=== PATIENT | female | born 1990 | race Caucasian/White ===

== ENCOUNTER 2019-03-31 22:01 | Inpatient (IN) ==
[2019-03-31] MEDS ORDERED: ZYPREXA IM ONE (22:11)
[2019-03-31] MEDS ORDERED: ATIVAN IM ONE (22:17)
[2019-03-31] MEDS ORDERED: QUELICIN IV ONE (22:38)
[2019-03-31] MEDS ORDERED: AMIDATE IV ONE (22:38)
[2019-03-31 22:46] LABS: BE 1.3 mmoll (-3.0-3.0); BLOOD TYPE ARTERIAL; HCO3-(ACT) 25.8 mmoll (20.0-26.0); O2(CT) 18.2 mL/dL (15.0-23.0); O2HB 92.1 % (95.0-99.0); PCO2(98.6) 36 mmHg (35-45); PO2(98.6) 77 mmHg (60-100); SAMPLE BLOOD; SAO2 98.4 % (95.0-100.0); pH(98.6) 7.45 (7.35-7.45)
[2019-03-31 22:50] LABS: INR 0.89; PROTIME 12.5 Seconds (11.0-16.0)
[2019-03-31 22:51] LABS: PTT 29.5 Seconds (22.3-41.8)
[2019-03-31 23:02] LABS: UR AMPHETAMINES QUAL NONE DETECTED (NONE DETECT); UR BARBITUATES QUAL NONE DETECTED (NONE DETECT); UR BENZODIAZEPIN QUAL NONE DETECTED (NONE DETECT); UR CANNABINOIDS QUAL NONE DETECTED (NONE DETECT); UR COCAINE QUAL NONE DETECTED (NONE DETECT); UR METHADONE QUAL NONE DETECTED (NONE DETECT); UR METHAMPHETAMINE QUAL NONE DETECTED (NONE DETECT); UR OPIATES QUAL NONE DETECTED (NONE DETECT); UR OXYCODONE QUAL NONE DETECTED (NONE DETECT); UR PCP QUAL NONE DETECTED (NONE DETECT); UR PROPOXYPHENE QUAL NONE DETECTED (NONE DETECT); UR TCA QUAL NONE DETECTED (NONE DETECT)
[2019-03-31 23:04] LABS: BASO# 0.04 X1000 (0.0-0.2); BASO% 0.3 % (0.0-0.8); EOS# 0.01 X1000 (0.0-0.7); EOS% 0.1 % (0.0-10.0); HEMATOCRIT 40.5 % (37.0-47.0); HEMOGLOBIN 13.2 g/dL (12.0-16.0); IMM GRAN# 0.04 X1000 (0.0-0.04); IMM GRAN% 0.3 % (0.0-0.5); LYMPH# 3.29 X1000 (1.2-3.4); LYMPH% 27.9 % (20.5-51.1); MCH 26.5 PG (27-31); MCHC 32.6 g/dL (33-37); MCV 81.3 FL (81-99); MONO% 7.6 % (1.7-9.3); MPV 10.3 FL (7.4-10.4); NEUT# 7.51 X1000 (1.4-6.5); NEUT% 63.8 % (42.2-75.2); PLT 372 X1000 (130-400); RBC 4.98 XMIL (4.2-5.4); RDW 13.8 % (11.5-14.5); WBC 11.79 X1000 (4.8-10.8)
[2019-03-31] MEDS ORDERED: NS 1,000 ML IV ONE (23:05)
[2019-03-31] MEDS ORDERED: DIPRIVAN 1% IV ONE (23:10)
[2019-03-31] MEDS: DIPRIVAN 1% 1,000 MG/100 ML BOTTLE IV SCH ×5 (23:10→23:48)
[2019-03-31] MEDS: NS 1,000 ML IV ONE (23:10)
[2019-03-31] MEDS ORDERED: INDERAL IV ONE (23:11)
--- NOTE | 2019-03-31 23:11 | PROVIDER DOCUMENTATION ---
This chart was entered by Lazaro Pelaez Scribe, acting as scribe for Sandy Dubon CRNP. [id number] Abuse/Overdose - General Source: patient, EMS - History of Present Illness-Drug/Alcohol This episode of drinking or use began:: just prior to arrival Psychiatric Complaints: reports: angry, agitated, suicidal ideation Associated Symptoms: reports: denies symptoms - Overdose Intentional drug overdose?: Yes <Sandy Dubon - Last Filed: 03/31/19 23:33> <Job Gordillo - Last Filed: 03/31/19 23:49> - General Stated Complaint: Overdose/ SI Time Seen by Provider: 03/31/19 22:02 - History of Present Illness-Drug/Alcohol Nature of Presenting Problem: 29 yof presents [facility] w/ Overdose/SI. pt states taken 34 Olanzapine and 2 Tylenol's. pt was trying to kill herself because no one listens to her. pt lives w/ fiance and his roommate. pt is screaming ,non-compliant, angry. pt is restrained. (Sandy Dubon) Review of Systems - Adult - REVIEW OF SYSTEMS - ADULT Constitutional: reports: no symptoms reported Eyes: reports: no symptoms reported Ears, Nose, Mouth & Throat: reports: no symptoms reported Cardiovascular: reports: no symptoms reported Respiratory: reports: no symptoms reported Gastrointestinal: reports: no symptoms reported Genitourinary: reports: no symptoms reported Musculoskeletal: reports: no symptoms reported Integumentary: reports: no symptoms reported Neurological: reports: no symptoms reported Psychiatric: reports: no symptoms reported Endocrine: reports: no symptoms reported Hematologic/Lymphatic: reports: no symptoms reported Allergic/Immunologic: reports: no symptoms reported All Other Systems: Reviewed and Negative <Sandy Dubon - Last Filed: 03/31/19 23:33> Past History - Adult - PAST MEDICAL HISTORY-ADULT Review of Records: reports: Old Records Reviewed, Nursing Assessment Review, Medications Reviewed, Social history reviewed & non-contributory. Major Childhood Illnesses: reports: denies history Cardiovascular: reports: denies history Respiratory: reports: denies history Gastrointestinal: reports: denies history Obstetrical/Gynecological: reports: denies history Genitourinary: reports: denies history Musculoskeletal: reports: denies history Neurological: reports: denies history Endocrine/Immune: reports: denies history Other Conditions: reports: denies history - PRIOR SURGERIES/PROCEDURES Surgical/Procedure History: reports: reviewed, not pertinent - IMMUNIZATION STATUS Childhood Immunizations: See Nurse Assessment Flu Vaccine: See Nurse Assessment - FAMILY HISTORY Family History: reviewed, not pertinent <Sandy Dubon - Last Filed: 03/31/19 23:33> Physical Exam-General - PHYSICAL EXAM-ADULT Initial Vital Signs Reviewed: Yes - CONSTITUTIONAL General Appearance: alert, combative <Sandy Dubon - Last Filed: 03/31/19 23:33> Progress - PLAN OF CARE/RESULTS Result Diagrams: 03/31/19 22:30 03/31/19 22:30 - REASSESSMENT Reassessment #1 Time Reassessed: 22:36 (CHANGE IN MS, UNRESPONSIVE, DR PATRICK AT BEDSIDE, WILL INTUBATE) Status: worsening - EKG 1 Time of EKG reading by physician:: 22:26 EKG Read and Signed by:: Job Gordillo EKG Interpretation (*Must complete 3 of following elements*): Abnormal Rate: 163 Rhythm: sinus tachycardia [place] [facility]: normal QRS: normal [place] Interval: normal ST Wave: normal Comments: Nonspecific ST and T wave abnormality - XRAY 1 XRAY Study: Chest Impression: See EMR Report (TUBE IN CORRECT PLACE ABOVE THE DONALD, ELEVATED R HEMIDIAPHRAGM) - CONSULTS/PCP/HOSPITALIST Notification #1 *Consult/PCP/Hospitalist*: DR. CORTEZ Time Discussed: 23:09 Consult Disposition: Admit (TO ICU) <Sandy Dubon - Last Filed: 03/31/19 23:33> - PLAN OF CARE/RESULTS Result Diagrams: 03/31/19 22:30 03/31/19 22:30 <Job Gordillo - Last Filed: 03/31/19 23:49> - PLAN OF CARE/RESULTS Progress/Plan/Lab Results: Vital Signs - 8 hr 03/31/19 22:03 03/31/19 23:10 Pulse Rate 142 H Respiratory Rate 20 O2 Sat by Pulse Oximetry 98 Laboratory Results - last 24 hr 03/31/19 03/31/19 03/31/19 22:30 22:30 22:30 WBC 11.79 H RBC 4.98 Hgb 13.2 Hct 40.5 MCV 81.3 MCH 26.5 L MCHC 32.6 L RDW Std Deviation 13.8 Plt Count 372 MPV 10.3 Immature Gran % (Auto) 0.3 Neut % (Auto) 63.8 Lymph % (Auto) 27.9 [place] % (Auto) 7.6 Eos % (Auto) 0.1 Baso % (Auto) 0.3 Immature Gran # (Auto) 0.04 Neut # (Auto) 7.51 H Lymph # (Auto) 3.29 [place] # (Auto) 0.90 H Eos # (Auto) 0.01 Baso # (Auto) 0.04 PT 12.5 INR 0.89 PTT (Actin FS) 29.5 Specimen Type Sample Site pH pCO2 pO2 HCO3 Base Excess Oxyhemoglobin ABG O2 Sat (Calculated) ABG O2 Saturation ABG Carboxyhemoglobin ABG Methemoglobin Clement Test A-a O2 Difference Total Hemoglobin Lactate Blood Gas Modality FiO2 % Sodium 136 Potassium 4.0 Chloride 102 Carbon Dioxide 21 L Anion Gap 13 BUN 9 Creatinine 0.5 Estimated GFR/1.73 m2 > 60 BUN/Creatinine Ratio 18 Glucose 133 H Calculated Osmolality 273 Calcium 9.5 Total Bilirubin < 0.15 L AST 13 ALT 12 Alkaline Phosphatase 188 H Total Protein 7.2 Albumin 4.4 Globulin 3.0 Albumin/Globulin Ratio 2.0 TSH Free T4 Urine Source Urine Color Urine Turbidity Urine pH Ur Specific [place] Urine Protein Ur Glucose (Stick) Ur Ketones (Stick) Urine Blood Urine Nitrite Urine Bilirubin Urobilinogen Dipstick Urine Leukocytes Urine WBC (Auto) Urine RBC (Auto) U Epithel Cells (Auto) Urine Bacteria (Auto) Salicylates < 3.00 L Urine Opiates Screen Ur Oxycodone Screen Urine Methadone Screen U Propoxyphene Qual Acetaminophen < 1.2 L Ur Barbituates Screen Ur Tricyclics Screen Ur Phencyclidine Scrn Ur Amphetamines Screen U Methamphetamines Scrn U Benzodiazepines Scrn Urine Cocaine Screen U Cannabinoids Screen Plasma/Serum Ethyl Alc 03/31/19 03/31/19 03/31/19 22:30 22:30 22:37 WBC RBC Hgb Hct MCV MCH MCHC RDW Std Deviation Plt Count MPV Immature Gran % (Auto) Neut % (Auto) Lymph % (Auto) [place] % (Auto) Eos % (Auto) Baso % (Auto) Immature Gran # (Auto) Neut # (Auto) Lymph # (Auto) [place] # (Auto) Eos # (Auto) Baso # (Auto) PT INR PTT (Actin FS) Specimen Type Sample Site pH pCO2 pO2 HCO3 Base Excess Oxyhemoglobin ABG O2 Sat (Calculated) ABG O2 Saturation ABG Carboxyhemoglobin ABG Methemoglobin Clement Test A-a O2 Difference Total Hemoglobin Lactate Blood Gas Modality FiO2 % Sodium Potassium Chloride Carbon Dioxide Anion Gap BUN Creatinine Estimated GFR/1.73 m2 BUN/Creatinine Ratio Glucose Calculated Osmolality Calcium Total Bilirubin AST ALT Alkaline Phosphatase Total Protein Albumin Globulin Albumin/Globulin Ratio TSH 6.52 H Free T4 1.14 Urine Source Cancelled Urine Color Cancelled Urine Turbidity Cancelled Urine pH Cancelled Ur Specific [place] Cancelled Urine Protein Cancelled Ur Glucose (Stick) Cancelled Ur Ketones (Stick) Cancelled Urine Blood Cancelled Urine Nitrite Cancelled Urine Bilirubin Cancelled Urobilinogen Dipstick Cancelled Urine Leukocytes Cancelled Urine WBC (Auto) Cancelled Urine RBC (Auto) Cancelled U Epithel Cells (Auto) Cancelled Urine Bacteria (Auto) Cancelled Salicylates Urine Opiates Screen Ur Oxycodone Screen Urine Methadone Screen U Propoxyphene Qual Acetaminophen Ur Barbituates Screen Ur Tricyclics Screen Ur Phencyclidine Scrn Ur Amphetamines Screen U Methamphetamines Scrn U Benzodiazepines Scrn Urine Cocaine Screen U Cannabinoids Screen Plasma/Serum Ethyl Alc 03/31/19 03/31/19 03/31/19 22:37 22:37 22:40 WBC RBC Hgb Hct MCV MCH MCHC RDW Std Deviation Plt Count MPV Immature Gran % (Auto) Neut % (Auto) Lymph % (Auto) [place] % (Auto) Eos % (Auto) Baso % (Auto) Immature Gran # (Auto) Neut # (Auto) Lymph # (Auto) [place] # (Auto) Eos # (Auto) Baso # (Auto) PT INR PTT (Actin FS) Specimen Type ARTERIAL Sample Site L BRACHIAL pH 7.45 pCO2 36 pO2 77 HCO3 25.8 Base Excess 1.3 Oxyhemoglobin 92.1 L ABG O2 Sat (Calculated) 18.2 ABG O2 Saturation 98.4 ABG Carboxyhemoglobin 5.40 H* ABG Methemoglobin 1.0 Clement Test NO A-a O2 Difference 28.0 Total Hemoglobin 14.0 Lactate 1.90 Blood Gas Modality ROOM AIR FiO2 % 21.0 Sodium Potassium Chloride Carbon Dioxide Anion Gap BUN Creatinine Estimated GFR/1.73 m2 BUN/Creatinine Ratio Glucose Calculated Osmolality Calcium Total Bilirubin AST ALT Alkaline Phosphatase Total Protein Albumin Globulin Albumin/Globulin Ratio TSH Free T4 Urine Source CATH Urine Color YELLOW Urine Turbidity CLEAR Urine pH 5.5 Ur Specific [place] 1.025 Urine Protein TRACE A Ur Glucose (Stick) NEGATIVE Ur Ketones (Stick) NEGATIVE Urine Blood NEGATIVE Urine Nitrite NEGATIVE Urine Bilirubin NEGATIVE Urobilinogen Dipstick 2 A Urine Leukocytes TRACE A Urine WBC (Auto) <10 Urine RBC (Auto) <10 U Epithel Cells (Auto) <10 Urine Bacteria (Auto) NEGATIVE Salicylates Urine Opiates Screen NONE DETECTED Ur Oxycodone Screen NONE DETECTED Urine Methadone Screen NONE DETECTED U Propoxyphene Qual NONE DETECTED Acetaminophen Ur Barbituates Screen NONE DETECTED Ur Tricyclics Screen NONE DETECTED Ur Phencyclidine Scrn NONE DETECTED Ur Amphetamines Screen NONE DETECTED U Methamphetamines Scrn NONE DETECTED U Benzodiazepines Scrn NONE DETECTED Urine Cocaine Screen NONE DETECTED U Cannabinoids Screen NONE DETECTED Plasma/Serum Ethyl Alc Orders Category Date Time Status [facility] Routine AdmDCTranf 03/31/19 23:43 Active V[place] Cath Insertion ORDERED Care 03/31/19 22:29 Active Misc. NRSG Communication Order DIRECTED Care 03/31/19 22:11 Active NG/OG/Feeding Tube Insertion ORDERED Care 03/31/19 22:53 Active Restraint Initiate NonViolent ONCE Care 03/31/19 22:09 Active CHEST-1 VIEW [RAD] Stat Exams 03/31/19 23:[address] HEAD W/O CONTRAST [CT] Stat Exams 03/31/19 23:13 Ordered ABG [RESP] Routine Lab 03/31/19 22:40 Completed ACETAMINOPHEN [TDM] Stat Lab 03/31/19 22:30 Completed ALCOHOL BLOOD Stat Lab 03/31/19 22:30 Completed CBC WITH ELECTRONIC DIFF [HEME] Stat Lab 03/31/19 22:30 Completed COMPREHENSIVE METABOLIC PANEL [CHEM] Stat Lab 03/31/19 22:30 Completed FREE T4 Stat Lab 03/31/19 22:30 Completed PROTIME WITH INR [COAG] Stat Lab 03/31/19 22:30 Completed PTT [COAG] Stat Lab 03/31/19 22:30 Completed SALICYLATES [TDM] Stat Lab 03/31/19 22:30 Completed TSH Stat Lab 03/31/19 22:30 Completed UA NIMS W/REFLEX CULT [URINALYSIS] Stat Lab 03/31/19 22:37 Completed URINE CULTURE [RM] Routine Lab 03/31/19 23:23 Ordered URINE DRUG SCREEN [address] Stat Lab 03/31/19 22:37 Completed 0.9% Sodium Chloride Inj [Ns] 1,000 ml Med 03/31/19 22:52 Active IV 75 mls/hr Etomidate [Amidate] Med 03/31/19 22:38 Discontinued 20 mg IV NOW ONE Lorazepam [Ativan] Med 03/31/19 22:17 Discontinued 2 mg IM NOW ONE Olanzapine [Zyprexa] Med 03/31/19 22:11 Discontinued 10 mg IM NOW ONE Propofol [Diprivan 1%] Med 03/31/19 23:00 Active 1,000 mg in 100 ml IV As Directed mls/hr Propranolol [Inderal] Med 03/31/19 23:11 Discontinued 10 mg IV NOW ONE Succinylcholine [Quelicin] Med 03/31/19 22:38 Discontinued 100 mg IV NOW ONE Ventilator Order Stat Oth 03/31/19 23:23 Active EKG [EKG] Stat Ther 03/31/19 22:10 Ordered Transfer/Admit Order [TRANSFER] Routine Transfer 03/31/19 23:44 Ordered 2306: WHEN RN ATTEMPTED TO PLACE OG TUBE, BLOOD WAS NOTED. DR GORDILLO AT BEDSIDE. ORDER TO DC OG FROM HIM. (Sandy Dubon) Procedures - INTUBATION Time of Intubation: 23:00 Airway Evaluation: Obese Mallampati Class: 3 Intubation Method: orotracheal Equipment: ETT, Glidescope Tube Size (cm): 7.5 Pretreated with 100% Oxygen?: Yes Breath Sounds after Intubation: equal ETT Primary Tube Confirmation: Capnometry CO2 Change, Direct Visualization, Chest Rise and Fall Intubation Complications: no complications Procedure Comment: BY DR KNIGHT WITH DR GORDILLO AT BEDSIDE <Sandy Dubon - Last Filed: 03/31/19 23:33> Departure - Departure Date of Disposition Decision: 03/31/19 Time of Disposition Decision: 23:10 Certified Medical Emergency: Emergent - Critical Care Note This patient required my direct & personal management of CC.: Yes Total Time (mins): 47 Critical Care Statement: This patient required my direct personal management to treat or rule out processes, the absence of which, could potentiallly result in sudden, clinically significant life or limb threatening deterioration. <Sandy Dubon - Last Filed: 03/31/19 23:33> - Departure Certified Medical Emergency: Emergent <Job Gordillo - Last Filed: 03/31/19 23:49> - Departure DIAGNOSIS: Intentional olanzapine overdose, Suicide attempt Disposition: ADMITTED INPATIENT 09 Condition: Fair Attestation - Physician/ GERSON Attestation Patient care was provided by Advanced Practice Provider:: Yes Advanced Practice Provider documentation review:: The Mid-level provider documentation, treatment plan and medical decision making was reviewed by the physician who agrees with all treatment and medical decision making by the P. The physician spent face to face time with patient:: Yes (DR GORDILLO, INTUBATED BY DR KNIGHT) Advanced Practice Provider documentation review:: Supervising physician onsite and consulted in the evaluation and care of this patient. The physician did have a face to face encounter with the patient. <Sandy Dubon - Last Filed: 03/31/19 23:33> This chart was documented by the indicated scribe, (Lzaaro Pelaez Scribe) and accurately reflects the services I performed and decisions made by me, Sandy Dubon CRNP, as attested by the provider's signature.
[2019-03-31 23:12] LABS: URINE SOURCE CATH
[2019-03-31 23:14] LABS: ACETAMINOPHEN < 1.2 ug/mL (10-30); AGAP 13; ALBUMIN 4.4 g/dL (3.5-5.0); ALKALINE PHOSPHATASE 188 U/L (32-104); BUN 9 mg/dL (8-22); CALCIUM 9.5 mg/dL (8.8-10.2); CHLORIDE 102 mmol/L (98-107); COSMO 273; CREATININE 0.5 mg/dL (0.5-0.9); ESTIMATED GFR > 60; GLUCOSE 133 mg/dL (70-104); GOT 13 U/L (10-30); GPT 12 U/L (10-36); SALICYLATES < 3.00 mg/dL (3-10); SODIUM 136 mmol/L (136-145); TCO2 21 mmol/L (25-35); TOTAL BILIRUBIN < 0.15 mg/dL (0.20-1.00); TOTAL PROTEIN 7.2 g/dL (6.3-8.3)
[2019-03-31 23:15] LABS: BILIRUBIN URINE NEGATIVE (NEGATIVE); BLOOD URINE NEGATIVE (NEGATIVE); COLOR YELLOW; GLUCOSE URINE NEGATIVE (NEGATIVE); KETONE URINE NEGATIVE (NEGATIVE); LEUKOCYTES URINE TRACE (NEGATIVE); NITRITE URINE NEGATIVE (NEGATIVE); PH URINE 5.5; PROTEIN URINE TRACE mg/dL (NEGATIVE); SP GRAVITY URINE 1.025; TURBIDITY URINE CLEAR (CLEAR); UR EPITHELIAL CELLS <10 /HPF (<10); URINE BACTERIA NEGATIVE /HPF; URINE RBC <10 /HPF (<10); URINE WBC <10 /HPF (<10); UROBILINOGEN URINE 2 mg/dL (NORMAL)
[2019-03-31 23:23] LABS: FREE T4 1.14 ng/dL (0.93-1.70)
[2019-03-31 23:27] LABS: ALLEN TEST NO; MODALITY ROOM AIR
[2019-03-31 23:28] LABS: TSH 6.52 uIUmL (0.27-4.20)
[2019-03-31] MEDS ORDERED: VERSED ONE (23:49)
[2019-03-31] MEDS ORDERED: NS 1,000 ML ONE (23:55)
[2019-04-01] MEDS: NS 1,000 ML IV ONE (00:04)
[2019-04-01] MEDS: DIPRIVAN 1% 1,000 MG/100 ML BOTTLE IV SCH ×10 (00:36→23:17)
[2019-04-01] MEDS ORDERED: VERSED IV ONE (00:38)
--- NOTE | 2019-04-01 03:56 | HISTORY AND PHYSICAL ---
CHIEF COMPLAINT: Drug overdose. PRIMARY CARE PHYSICIAN: Unknown. HISTORY OF PRESENTING ILLNESS: A 29-year-old female who was brought initially to [facility] after possible overdose on Zyprexa. Apparently, family had stated that she took about 30 pills of Zyprexa and she tried to kill herself. She was initially agitated and then she became unresponsive; subsequently, she was emergently intubated there. Due to lack of ICU beds, she was transferred to [facility] for further evaluation and management. At the time of my examination, no family is around and most of the history is obtained from previous ER charting and records. PAST MEDICAL HISTORY: Unknown. PAST SURGICAL HISTORY: Unknown. ALLERGIES: Unknown. CURRENT MEDICATIONS: Unknown. SOCIAL HISTORY: Unknown. FAMILY HISTORY: Unknown. REVIEW OF SYSTEMS: Unable to obtain due to patient being intubated. PHYSICAL EXAMINATION: GENERAL: The patient is currently intubated and on a ventilator. VITAL SIGNS: Temperature 97.9 degrees, pulse 117, blood pressure 155/109. HEENT: Atraumatic, normocephalic. NECK: No masses. CHEST: Clear to auscultation. CARDIOVASCULAR: Regular rate and rhythm. ABDOMEN: Soft, positive bowel sounds. EXTREMITIES: No edema. NEUROLOGIC: Patient is sedated on propofol. GENITOURINARY: No bladder distention. SKIN: Warm. LABORATORIES AND STUDIES: WBCs 11.79, hemoglobin 13.2, hematocrit 40.5, platelets 372,000. Sodium 136, potassium 4.0, chloride 102, CO2 is 21, BUN is 9, creatinine 0.5. Glucose is 133. UA is nitrite negative. Toxicology is negative for salicylate and acetaminophen. ASSESSMENT: A 29-year-old female who intentionally took about 30 pills of Zyprexa. She was initially seen at [facility], where she became unresponsive. She was rapidly intubated. Her case was discussed with Poison Control, who recommended supportive care. Due to lack of ICU beds available at [place], she was transferred to [facility] for further evaluation and management. 1. Intentional drug overdose with Zyprexa. 2. Suicide attempt. PLAN: 1. We will admit patient to ICU. 2. We will continue with ventilator management and supportive care. 3. We will consult Psychiatry. 4. We will put patient on DVT prophylaxis, SCDs. 5. We will continue to follow and reassess. Make further recommendation based on patient's clinical course. cc: Reddy Thomson MD
--- NOTE | 2019-04-01 05:13 | EKG Report ---
Test Performed on : 03/31/2019 10:26:56 PM Test Reason : SI Blood Pressure : / mmHG Vent. Rate : 163 BPM Atrial Rate : 166 BPM P-R Int : 112 ms QRS Dur : 076 ms QT Int : 298 ms P-R-T Axes : 000 030 045 degrees QTc Int : 490 ms Sinus tachycardia. Nonspecific ST and T wave abnormality Abnormal ECG No previous ECGs available Unconfirmed Result
--- NOTE | 2019-04-01 05:26 | Diag Imaging Result Doc PS360 ---
EXAM: CHEST-1 VIEW HISTORY: og tube placement TECHNIQUE: Single view COMPARISON: 03/31/2019 FINDINGS: Chest abdomen single view. A nasogastric tube overlies the esophagus and stomach. This appears to be in good position. The stomach is no longer distended as it previously was. IMPRESSION: Nasogastric tube in good position. Electronically signed by Slade Dye 04/01/2019 5:23 AM
--- NOTE | 2019-04-01 05:31 | Diag Imaging Result Doc PS360 ---
EXAM: CHEST-1 VIEW HISTORY: tube placement TECHNIQUE: Single view COMPARISON: None. FINDINGS: There is an endotracheal tube in good position 2 cm above the tyrell. Poor inspiratory effort. No cardiomegaly. No pulmonary edema. No pleural effusions identified. There are infiltrates or atelectasis in the lower right lung. IMPRESSION: Endotracheal tube in good position. Electronically signed by Slade Dye 04/01/2019 5:29 AM
--- NOTE | 2019-04-01 05:34 | Diag Imaging Result Doc PS360 ---
EXAM: CT HEAD W/O CONTRAST HISTORY: OD TECHNIQUE: CT head without contrast COMPARISON: None. FINDINGS: No parenchymal hemorrhage. No epidural or subdural hematoma. No subarachnoid hemorrhage. No mass identified on this noncontrasted exam. No hydrocephalus. No sinus opacification. IMPRESSION: No hemorrhage. Negative brain CT without contrast. A preliminary report was given at 12:59 AM This exam was performed using automated exposure control, adjustment of mA or kV according to patient size, and/or use of iterative reconstruction technique. Electronically signed by Slade Dye 04/01/2019 5:32 AM
--- NOTE | 2019-04-01 07:05 | EKG Report ---
Test Performed on : 04/01/2019 06:38:11 AM Test Reason : OVERDOSE Blood Pressure : / mmHG Vent. Rate : 095 BPM Atrial Rate : 095 BPM P-R Int : 166 ms QRS Dur : 084 ms QT Int : 366 ms P-R-T Axes : 057 030 024 degrees QTc Int : 459 ms Sinus rhythm. with occasional premature ventricular complexes. Otherwise normal ECG When compared with ECG of 31-MAR-2019 22:26, (Unconfirmed) premature ventricular complexes. are now present Vent. rate has decreased BY [address] no longer depressed in Anterolateral leads Confirmed by Osito LANTIGUA, Alec Song ([id number]) on 04/06/2019 9:24:27 AM
[2019-04-01 08:53] LABS: BASO# 0.06 X1000 (0.0-0.2); BASO% 0.5 % (0.0-0.8); EOS# 0.04 X1000 (0.0-0.7); EOS% 0.3 % (0.0-10.0); HEMATOCRIT 39.1 % (37.0-47.0); HEMOGLOBIN 12.4 g/dL (12.0-16.0); IMM GRAN# 0.03 X1000 (0.0-0.04); IMM GRAN% 0.2 % (0.0-0.5); LYMPH# 2.74 X1000 (1.2-3.4); LYMPH% 21.2 % (20.5-51.1); MCH 26.8 PG (27-31); MCHC 31.7 g/dL (33-37); MCV 84.6 FL (81-99); MONO# 1.66 X1000 (0.11-0.59); MONO% 12.8 % (1.7-9.3); MPV 10.2 FL (7.4-10.4); NEUT# 8.39 X1000 (1.4-6.5); PLT 326 X1000 (130-400); RBC 4.62 XMIL (4.2-5.4); RDW 14.1 % (11.5-14.5); WBC 12.92 X1000 (4.8-10.8)
[2019-04-01 09:17] LABS: AGAP 16; BUN 6 mg/dL (8-22); CALCIUM 8.8 mg/dL (8.8-10.2); CHLORIDE 105 mmol/L (98-107); COSMO 279; CREATININE 0.6 mg/dL (0.5-0.9); ESTIMATED GFR > 60; GLUCOSE 99 mg/dL (70-104); SODIUM 141 mmol/L (136-145); TCO2 20 mmol/L (25-35)
[2019-04-01 10:20] LABS: ALLEN TEST YES; BE 1.4 mmoll (-3.0-3.0); BLOOD TYPE ARTERIAL; METHB 1.1 % (0.0-1.5); MODALITY VENTILATOR; O2(CT) 17.8 mL/dL (15.0-23.0); O2HB 97.3 % (95.0-99.0); PCO2(98.6) 35 mmHg (35-45); PO2(98.6) 147 mmHg (60-100); SAMPLE BLOOD; SAO2 99.5 % (95.0-100.0); SRATE 15 BPM; THB 12.8 g/dL (11.5-17.4); TVOL 500 mL; pH(98.6) 7.46 (7.35-7.45)
--- NOTE | 2019-04-01 13:25 | CONSULTATION ---
DATE OF CONSULTATION: 04/01/2019 REQUESTING PROVIDER: Dr. Reddy Thomson. REASON FOR CONSULTATION: Ventilator management. HISTORY OF PRESENT ILLNESS: This is a 29-year-old female with no medical history. She initially presented to [place] with possible Zyprexa overdose. Upon arrival to the ER, she was agitated and then became unresponsive. She was intubated emergently in the ER at 2310 last night. Initial chest x-ray showed poor inspiratory effort with infiltrates or atelectasis in the lower right lung. Initial blood work showed mild leukocytosis, critically high ABG carboxyhemoglobin, and elevated TSH. Drug screen was unremarkable. The patient was transferred to ICU in our facility this morning at 0210 due to the lack of ICU bed availability in the [place]. The patient currently is still intubated and sedated with Diprivan drip. There is no family at the bedside. All other information is obtained from the E-chart. PAST MEDICAL HISTORY: Unknown. PAST SURGICAL HISTORY: Unknown. ALLERGIES: Unknown. SOCIAL HISTORY: Unknown. FAMILY HISTORY: Unknown. REVIEW OF SYSTEMS: Unable to be obtained. PHYSICAL EXAMINATION: Vital Signs: Temperature 97.9, blood pressure 128/94, pulse 90, respiratory rate 15, oxygen saturation 100% on AC mechanical ventilator with spontaneous rate 16, FiO2 of 100%, tidal volume 500, and PEEP 5. General: Appears older than stated age, intubated and sedated. No acute distress noted. HEENT: Atraumatic, normocephalic. Trachea midline. ET tube in place. Mucosa pink and slightly dry. Respiratory: Mechanically ventilated. Symmetrical excursion. Auscultation revealed rhonchi on the right upper lobe, otherwise clear. Cardiovascular: Regular rate and rhythm. Gastrointestinal: Obese, soft. Normoactive bowel sounds in all 4 quadrants. Extremities: No pedal edema. No cyanosis. No clubbing. Dorsalis pedis 2+ bilaterally. Neurologic: Sedated. Withdraws bilateral lower extremities on touch, but unresponsive to any verbal stimuli. LABORATORY DATA: White blood cells 12.92, hemoglobin 12.4, hematocrit 39.1, platelets 326,000. Sodium 141, potassium 4.0, chloride 105, carbon dioxide 20, BUN 6, creatinine 0.6, glucose 99. ABG: PH 7.46, pCO2 of 35, PO2 of 147, HC03 of 26, base excess 1.4, oxyhemoglobin 97.3. IMAGING DATA: No imaging today. ASSESSMENT: This is a 29-year-old, female with an unknown medical history. She has been admitted to the intensive care unit with intentional drug overdose with Zyprexa in a suicide attempt. 1. Acute hypoxic respiratory failure secondary to unresponsiveness. 2. Intentional drug overdose with Zyprexa. 3. Suicide attempt. PLAN: 1. Continue AC mechanical ventilator. Will start weaning trials when appropriate. 2. Breathing treatment as needed. 3. Follow up with ABG, CBC, BMP, urine culture, test, and chest x-ray. 4. Continue GI and DVT prophylaxis. 5. Further recommendations pending hospital course. Thank you for the courtesy of this consult. Dictated by CHARLES Fair for Justus Starr MD cc: CHARLES Fair MD Lloyd James, MD MTDD
[2019-04-02] MEDS: DIPRIVAN 1% 1,000 MG/100 ML BOTTLE IV SCH ×5 (01:44→12:27)
[2019-04-02 04:54] LABS: ALLEN TEST YES; BE 2.1 mmoll (-3.0-3.0); BLOOD TYPE ARTERIAL; HCO3-(ACT) 26.6 mmoll (20.0-26.0); O2(CT) 17.9 mL/dL (15.0-23.0); O2HB 97.2 % (95.0-99.0); PCO2(98.6) 34 mmHg (35-45); PO2(98.6) 147 mmHg (60-100); SAMPLE BLOOD; SAO2 99.5 % (95.0-100.0); SRATE 15 BPM; THB 12.9 g/dL (11.5-17.4); TVOL 500 mL; pH(98.6) 7.48 (7.35-7.45)
[2019-04-02 04:55] LABS: MODALITY VENTILATOR
--- NOTE | 2019-04-02 05:58 | EKG Report ---
Test Performed on : 04/01/2019 2:18:19 PM Test Reason : OD Blood Pressure : / mmHG Vent. Rate : 093 BPM Atrial Rate : 093 BPM P-R Int : 156 ms QRS Dur : 084 ms QT Int : 376 ms P-R-T Axes : 060 037 008 degrees QTc Int : 467 ms Sinus rhythm. with occasional premature ventricular complexes. Otherwise normal ECG When compared with ECG of 01-APR-2019 06:38, (Unconfirmed) No significant change was found Confirmed by Osito LANTIGUA, Alec Song ([id number]) on 04/06/2019 9:24:48 AM
[2019-04-02 06:39] LABS: BASO# 0.03 X1000 (0.0-0.2); BASO% 0.3 % (0.0-0.8); EOS# 0.02 X1000 (0.0-0.7); EOS% 0.2 % (0.0-10.0); HEMATOCRIT 39.8 % (37.0-47.0); HEMOGLOBIN 12.6 g/dL (12.0-16.0); LYMPH# 1.78 X1000 (1.2-3.4); LYMPH% 19.4 % (20.5-51.1); MCH 26.2 PG (27-31); MCHC 31.7 g/dL (33-37); MCV 82.7 FL (81-99); MONO# 0.92 X1000 (0.11-0.59); MPV 10.4 FL (7.4-10.4); NEUT# 6.43 X1000 (1.4-6.5); NEUT% 70.1 % (42.2-75.2); PLT 307 X1000 (130-400); RBC 4.81 XMIL (4.2-5.4); RDW 14.5 % (11.5-14.5); WBC 9.18 X1000 (4.8-10.8)
[2019-04-02 07:02] LABS: AGAP 15; BUN 5 mg/dL (8-22); CALCIUM 8.8 mg/dL (8.8-10.2); CHLORIDE 103 mmol/L (98-107); COSMO 279; CREATININE 0.6 mg/dL (0.5-0.9); ESTIMATED GFR > 60; GLUCOSE 99 mg/dL (70-104); POTASSIUM 3.7 mmol/L (3.5-5.1); SODIUM 141 mmol/L (136-145); TCO2 23 mmol/L (25-35)
--- NOTE | 2019-04-02 07:03 | Diag Imaging Result Doc PS360 ---
EXAM: CHEST-1 VIEW 04/02/2019 HISTORY: SOB TECHNIQUE: AP portable at 0506 COMMENT: There is an endotracheal tube with its tip at the thoracic inlet and an NG tube which passes below the diaphragm into the stomach. The inspiration is slightly better than on 03/31/2019. There may still be some degree of bibasilar atelectasis. IMPRESSION: Bibasilar atelectasis. Electronically signed by Asher Mitchell 04/02/2019 7:01 AM
--- NOTE | 2019-04-02 07:08 | EKG Report ---
Test Performed on : 04/02/2019 06:51:46 AM Test Reason : OVERDOSE Blood Pressure : / mmHG Vent. Rate : 097 BPM Atrial Rate : 097 BPM P-R Int : 152 ms QRS Dur : 086 ms QT Int : 378 ms P-R-T Axes : 066 047 022 degrees QTc Int : 480 ms Sinus rhythm. with occasional premature ventricular complexes. Prolonged QT Abnormal ECG When compared with ECG of 01-APR-2019 14:18, (Unconfirmed) No significant change was found Confirmed by Osito LANTIGUA, Alec Song ([id number]) on 04/06/2019 9:25:01 AM
[2019-04-02] MEDS: DUONEB (A & A) INH PRN ×3 (07:56→15:55)
[2019-04-02] MEDS ORDERED: SODIUM CHLORIDE 0.9% INJ SCH (09:30)
--- NOTE | 2019-04-02 09:44 | PROGRESS NOTE ---
DATE: 04/02/2019 SUBJECTIVE: The patient is currently intubated as well as sedated. OBJECTIVE: Vital Signs: Temperature is 98.6 degrees, pulse 93, respirations 15, blood pressure 119/76, oxygen saturation is 99%. HEENT: She has atraumatic, normocephalic. She is anicteric. Pupils are equal, poorly reactive to light. She does have an NG tube as well as ET tube in place. Neck: No lymphadenopathy or thyromegaly. Cardiovascular: S1, S2. Respiratory: Has evidence of good air entry bilaterally. Abdomen: Soft, nontender. No masses felt. Extremities: No evidence of edema. Central Nervous System: No obvious focal deficits noted. IMAGING AND LABORATORY DATA: WBC is 9.18, hematocrit is 39.8, with a platelet count of 237,000. Sodium is 141, potassium 3.7, chloride is 103, bicarb 23, BUN is 5, creatinine 0.6. ABG 7.48/34/147/99.5%. X-ray of the chest shows bibasilar atelectasis. EKG shows normal sinus rhythm with occasional PVCs, prolonged QT. ASSESSMENT AND PLAN: 1. Acute respiratory failure. Recommend cutting down on sedation, and plan for weaning and extubation as soon as possible. Pulmonary team is following. 2. Intentional drug overdose with Zyprexa/suicide attempt/major depression. Will consult with Psychiatric team when the patient is medically stable. 3. Deep venous thrombosis prophylaxis. Sequential compression devices. 4. Gastrointestinal prophylaxis. Proton pump inhibitor. cc: MD Reddy Villar MD
[2019-04-02] MEDS: NS 1,000 ML IV SCH ×2 (09:45→21:53)
[2019-04-02] MEDS: PROTONIX IV SCH (09:45)
[2019-04-02 10:28] LABS: MAGNESIUM 2.1 mg/dL (1.5-2.7); PHOSPHORUS 3.1 mg/dL (2.7-4.5)
[2019-04-02 14:38] LABS: ALLEN TEST NO; BE 0.9 mmoll (-3.0-3.0); BLOOD TYPE ARTERIAL; HCO3-(ACT) 25.6 mmoll (20.0-26.0); METHB 0.7 % (0.0-1.5); O2(CT) 17.3 mL/dL (15.0-23.0); O2HB 95.1 % (95.0-99.0); PCO2(98.6) 32 mmHg (35-45); PO2(98.6) 69 mmHg (60-100); SAMPLE BLOOD; THB 12.9 g/dL (11.5-17.4); pH(98.6) 7.48 (7.35-7.45)
[2019-04-02 14:39] LABS: MODALITY VENTILATOR
[2019-04-02] MEDS ORDERED: OFIRMEV 1000 MG/ISOTONIC SOLN 1,000 MG/100 ML BOTTLE IV PRN (17:06)
--- NOTE | 2019-04-02 17:32 | Diag Imaging Result Doc PS360 ---
EXAM: CHEST-PORTABLE INDICATION: fever TECHNIQUE: One view COMPARISON: 04/02/2019 FINDINGS: There has been interval extubation and removal of the NG tube. There is slight increased opacity in the mid to lower lung zone on the left which could represent a developing consolidation in the lingula. The right lung is clear. The cardiomediastinal silhouette and central vasculature are grossly unremarkable. IMPRESSION: Vague opacity in the left mid to lower lung zone suggesting possible developing consolidation. Follow-up radiograph is recommended. Electronically signed by Sanjiv Shah 04/02/2019 5:30 PM
[2019-04-03 04:43] LABS: ALLEN TEST YES; BE 0.8 mmoll (-3.0-3.0); BLOOD TYPE ARTERIAL; HCO3-(ACT) 25.6 mmoll (20.0-26.0); METHB 0.5 % (0.0-1.5); O2(CT) 16.3 mL/dL (15.0-23.0); O2HB 97.8 % (95.0-99.0); PCO2(98.6) 39 mmHg (35-45); PO2(98.6) 116 mmHg (60-100); SAMPLE BLOOD; SAO2 100.4 % (95.0-100.0); THB 11.7 g/dL (11.5-17.4); pH(98.6) 7.42 (7.35-7.45)
[2019-04-03 04:44] LABS: MODALITY ROOM AIR
--- NOTE | 2019-04-03 05:30 | EKG Report ---
Test Performed on : 04/03/2019 01:45:06 AM Test Reason : OVERDOSE Blood Pressure : / mmHG Vent. Rate : 092 BPM Atrial Rate : 092 BPM P-R Int : 168 ms QRS Dur : 086 ms QT Int : 368 ms P-R-T Axes : 052 032 017 degrees QTc Int : 455 ms Normal sinus rhythm. Normal ECG When compared with ECG of 02-APR-2019 20:25, (Unconfirmed) premature ventricular complexes. are no longer present QRS axis shifted left Confirmed by Osito LANTIGUA, Alec Song ([id number]) on 04/06/2019 9:26:06 AM
--- NOTE | 2019-04-03 05:31 | EKG Report ---
Test Performed on : 04/02/2019 8:25:31 PM Test Reason : OVERDOSE Blood Pressure : / mmHG Vent. Rate : 098 BPM Atrial Rate : 098 BPM P-R Int : 152 ms QRS Dur : 094 ms QT Int : 376 ms P-R-T Axes : 117 148 155 degrees QTc Int : 480 ms Suspect arm lead reversal, interpretation assumes no reversal Sinus rhythm. with occasional premature ventricular complexes. Right axis deviation Prolonged QT Abnormal ECG When compared with ECG of 02-APR-2019 06:51, (Unconfirmed) QRS axis shifted right Confirmed by Osito LANTIGUA, Alec Song ([id number]) on 04/06/2019 9:26:04 AM
[2019-04-03 06:07] LABS: BASO# 0.04 X1000 (0.0-0.2); BASO% 0.5 % (0.0-0.8); EOS# 0.07 X1000 (0.0-0.7); EOS% 0.8 % (0.0-10.0); HEMATOCRIT 35.3 % (37.0-47.0); HEMOGLOBIN 11.4 g/dL (12.0-16.0); LYMPH# 1.92 X1000 (1.2-3.4); LYMPH% 22.9 % (20.5-51.1); MCH 26.9 PG (27-31); MCHC 32.3 g/dL (33-37); MCV 83.3 FL (81-99); MONO% 7.2 % (1.7-9.3); MPV 10.4 FL (7.4-10.4); NEUT# 5.75 X1000 (1.4-6.5); NEUT% 68.6 % (42.2-75.2); PLT 325 X1000 (130-400); RBC 4.24 XMIL (4.2-5.4); RDW 14.4 % (11.5-14.5); WBC 8.38 X1000 (4.8-10.8)
[2019-04-03 06:08] LABS: AGAP 13; ALB/GLOB RATIO 1.1; ALBUMIN 3.1 g/dL (3.5-5.0); ALKALINE PHOSPHATASE 160 U/L (32-104); BUN 6 mg/dL (8-22); CALCIUM 8.6 mg/dL (8.8-10.2); CHLORIDE 106 mmol/L (98-107); COSMO 280; CREATININE 0.5 mg/dL (0.5-0.9); ESTIMATED GFR > 60; GLUCOSE 88 mg/dL (70-104); GOT 8 U/L (10-30); GPT 9 U/L (10-36); POTASSIUM 3.7 mmol/L (3.5-5.1); SODIUM 142 mmol/L (136-145); TCO2 23 mmol/L (25-35); TOTAL BILIRUBIN 0.49 mg/dL (0.20-1.00); TOTAL PROTEIN 5.8 g/dL (6.3-8.3)
--- NOTE | 2019-04-03 07:23 | EKG Report ---
Test Performed on : 04/03/2019 06:33:38 AM Test Reason : OVERDOSE Blood Pressure : / mmHG Vent. Rate : 089 BPM Atrial Rate : 089 BPM P-R Int : 168 ms QRS Dur : 088 ms QT Int : 378 ms P-R-T Axes : 055 043 030 degrees QTc Int : 459 ms Sinus rhythm. with occasional premature ventricular complexes. Otherwise normal ECG When compared with ECG of 03-APR-2019 01:45, (Unconfirmed) premature ventricular complexes. are now present Confirmed by Osito LANTIGUA, Alec Song ([id number]) on 04/06/2019 9:26:48 AM
--- NOTE | 2019-04-03 07:42 | Diag Imaging Result Doc PS360 ---
EXAM: CHEST-1 VIEW INDICATION: SOB TECHNIQUE: One view COMPARISON: 04/02/2019 FINDINGS: The opacity at the left mid to lower lung zone seen on the previous study is approximately stable. No new consolidation is identified. Cardiac silhouette is stable. IMPRESSION: Stable chest. Electronically signed by Sanjiv Shah 04/03/2019 7:40 AM
[2019-04-03] MEDS: PROTONIX IV SCH (08:43)
[2019-04-03] MEDS ORDERED: LOVENOX SUBQ SCH (09:00)
--- NOTE | 2019-04-03 10:12 | PROVIDER PROGRESS NOTE ---
Progress Note Pulmonary Note: The patient was extubated and tolerated that. Will see PRN. Please re-consult if needed.
[2019-04-03] MEDS: NS 1,000 ML IV SCH (14:06)
[2019-04-03] MEDS ORDERED: LEVAQUIN PO SCH (15:30)
--- NOTE | 2019-04-03 15:48 | PROGRESS NOTE ---
DATE: 04/03/2019 INTERVAL HISTORY: Patient successfully extubated and doing very well from a respiratory standpoint. Saturating well on no oxygen. Awake, alert, and speaking coherently. No new complaints. REVIEW OF SYSTEMS: Twelve point review of systems negative except as per interval history. LABORATORY DATA: WBC 8.3, hemoglobin 11.4, hematocrit 35.3, platelets 325,000. ABG with pH 7.42, pCO2 39, PO2 116 on room air. Chemistry essentially unremarkable aside from minimally elevated alkaline phosphatase 160. IMAGING: Chest x-ray with minimal left lower lung opacity likely atelectasis. VITALS: T-max 99 degrees, pulse 95, respirations 13, blood pressure 135/90, O2 saturation 95% on room air. PHYSICAL EXAMINATION: General: No acute distress. Vitals: As above. HEENT: Normocephalic, atraumatic. Moist mucous membranes. Cardiovascular: Regular rate and rhythm. No murmurs noted. Pulmonary: Possible very faint left lower lobe crackles but largely clear to auscultation bilaterally. Abdomen: Soft, nontender, nondistended. Bowel sounds positive. Extremities: Peripheral pulses intact. No clubbing or cyanosis. Neurologic: Cranial nerves grossly intact. No focal deficits. Psychiatric: Awake, alert, oriented x3. Surprisingly normal affect. ASSESSMENT AND PLAN: 1. Intentional drug overdose with Zyprexa, suicide attempt. Evaluated by [facility] who believe she needs inpatient psychiatric care but do not have a bed currently. We will await psychiatric placement. 2. Acute respiratory failure, likely secondary to overdose as above successfully extubated and doing quite well from a respiratory standpoint. On review of x-ray really looks most like atelectasis, but given fevers yesterday, we will have her on a short course of Levaquin for possible pneumonia. Saturating well on room air, so she remains medically stable. 3. Leukocytosis resolved. cc: Reddy Thomson MD
[2019-04-03 23:15] VITALS: BP 143/79
== END 2019-04-04 00:08 | DRG 917 ==
LOC: P.ED 22:01 → SUATTDRO 23:43 → ICU 04-01 00:12 → SUATTDRO 04-01 00:12 → 4N 04-03 19:07
PROVIDERS: ADMIT Emergency Medicine; ATTEND Internal Medicine